=== PATIENT | female | born 1955 | race African-American/Black ===

== ENCOUNTER 2018-09-20 09:20 | Inpatient (IN) | payer MEDICAID ==
[~2018-09-20] VITALS: Ht 167.6 cm; Wt 61.2 kg
[2018-09-20] MEDS ORDERED: NAPR220C15 PO (09:41)
[2018-09-20] MEDS ORDERED: LOSA1TAB39 PO (09:41)
--- NOTE | 2018-09-20 09:43 | NUR ---
Dr Lira at the bedside for MSE.
[2018-09-20 10:19] LABS: BASOPHILS # (AUTO) 0.1 K/uL (0.0-8.0); BASOPHILS % (AUTO) 0.9 % (0.0-2.0); EOSINOPHILS # (AUTO) 0.1 K/uL (0.0-0.7); HEMATOCRIT 31.9 % (31.2-41.9); HEMOGLOBIN 10.8 g/dL (10.9-14.3); LYMPHOCYTES # (AUTO) 1.5 K/uL (20.0-40.0); LYMPHOCYTES % (AUTO) 22.6 % (20.5-51.5); MEAN CORPUSCULAR HEMOGLOBIN 29.2 uug (24.7-32.8); MEAN CORPUSCULAR HGB CONC 34 g/dL (32.3-35.6); MEAN CORPUSCULAR VOLUME 86.4 fL (75.5-95.3); MONOCYTES # (AUTO) 0.7 K/uL (2.0-10.0); MONOCYTES % (AUTO) 10.5 % (0.0-11.0); NEUTROPHILS # (AUTO) 4.2 K/uL (1.8-8.9); PLATELET COUNT (AUTO) 470 K/uL (179-408); WHITE BLOOD COUNT (AUTO) 6.5 K/uL (3.8-11.8)
--- NOTE | 2018-09-20 10:19 | NUR ---
Per Pt and MD request, faxed request to [facility] for Pt's medical records.
[2018-09-20 10:24] LABS: *BILIRUBIN,URIN NEGATIVE (NEGATIVE); *BLOOD, URINE NEGATIVE (NEGATIVE); *CLARITY,URINE CLEAR (CLEAR); *COLOR,URINE LIGHT YELLOW (YELLOW); *KETONES,URINE NEGATIVE (NEGATIVE); *PROTEIN,URINE NEGATIVE (NEGATIVE); *UROBILINOGEN,URINE 0.2 E.U./dl (NORMAL); LEUKOCYTE ESTERASE ,URINE NEGATIVE (NEGATIVE); NITRITE, URINE NEGATIVE (NEGATIVE); UGLUCOSE NEGATIVE (NEGATIVE)
[2018-09-20 10:27] LABS: CREATININE 1.2 mg/dL (0.6-1.3); POTASSIUM 3.3 mmol/L (3.5-5.1)
[2018-09-20 10:34] LABS: BACTERIA,URINE NONE SEEN /HPF (NONE SEEN); RBC,URINE 0-3 /HPF (0-3); SQUAMOUS EPITHELIAL CELL,UR MODERATE /HPF (NONE SEEN); WBC,URINE 0-3 /HPF (0-3)
[2018-09-20 10:39] LABS: BILIRUBIN,DIRECT 0.1 mg/dL (0.0-0.2); BILIRUBIN,TOTAL 0.6 mg/dL (0.2-1.0); TOTAL PROTEIN, SERUM 7.6 g/dL (6.4-8.2)
--- NOTE | 2018-09-20 11:55 | NUR ---
Pt is medically cleared by Dr Lira.
--- NOTE | 2018-09-20 12:06 | NUR ---
PET torch burner jarred was called per MD request.
--- NOTE | 2018-09-20 13:14 | NUR ---
Pinky from PET in w/ pt. for eval.
--- NOTE | 2018-09-20 14:37 | NUR ---
Called [facility], [place] for admit, awaiting Dr Abraham for call back.
--- NOTE | 2018-09-20 17:00 | NUR ---
Received patient from ER, history taken, patient oriented room and vitals recorded. No distress noted at this time, bed in low position, side rails up x2. Bed alarm on.
[2018-09-20 17:40] VITALS: BP 132/52
[2018-09-20] MEDS ORDERED: MAGNESIUM HYDROXIDE 30 ML LIQUID UDC PO PRN (17:45)
[2018-09-20] MEDS ORDERED: ACETAMINOPHEN 325 MG TABLET PO PRN (17:45)
[2018-09-20] MEDS ORDERED: LORAZEPAM 2 MG/1 ML VIAL IV PRN ×2 (17:45→18:30)
[2018-09-20] MEDS ORDERED: lamotrigine (17:53)
[2018-09-20] MEDS ORDERED: LEVE1000 PO (17:53)
[2018-09-20] MEDS ORDERED: OMEPR (17:53)
[2018-09-20] MEDS ORDERED: omeprazole (17:54)
[2018-09-20] MEDS ORDERED: hydrALAZINE HCL 25 MG TABLET PO PRN (18:30)
--- NOTE | 2018-09-20 19:35 | NUR ---
RECEIVED PT AWAKE, ALERT, AND ORIENTEDX4. VISITOR AT BEDSIDE. IV INTACT AND PATENT. PT SHOWS NO SIGNS OF DISTRESS. CALL LIGHT WITHIN REACH. SAFETY AND COMFORT PROVIDED. WILL CONTINUE TO MONITOR.
[2018-09-20 20:00] VITALS: BP 118/58
[2018-09-20] MEDS: DOCUSATE SODIUM 100 MG CAPSULE PO SCH (20:55)
[2018-09-20] MEDS: LEVETIRACETAM 500 MG TABLET PO SCH (20:55)
[2018-09-20] MEDS: POTASSIUM CHLORIDE 20 MEQ in IV 1/2NS 1000 ML 1,000 ML IV PRN (23:52)
[2018-09-21] VITALS: BP 108/47
[2018-09-21 04:00] VITALS: BP 116/70
[2018-09-21] MEDS: PANTOPRAZOLE SODIUM 40 MG TABLET.DR PO SCH (06:35)
--- NOTE | 2018-09-21 06:58 | NUR ---
PT SLEPT THROUGHOUT THE SHIFT.PT SHOWS NO SIGNS OF DISTRESS. PRESCRIBED MEDICATION GIVEN AND PT TOLERATED IT WELL. SAFETY AND COMFORT PROVIDED. WILL ENDORSE ACCORDINGLY TO DAYSHIFT NURSE FOR CONTINUITY OF CARE.
[2018-09-21 07:15] LABS: BASOPHILS % (AUTO) 0.8 % (0.0-2.0); EOSINOPHILS # (AUTO) 0.1 K/uL (0.0-0.7); EOSINOPHILS % (AUTO) 1.4 % (0.0-7.0); HEMATOCRIT 31.4 % (31.2-41.9); HEMOGLOBIN 10.6 g/dL (10.9-14.3); LYMPHOCYTES # (AUTO) 1.7 K/uL (20.0-40.0); LYMPHOCYTES % (AUTO) 27.5 % (20.5-51.5); MEAN CORPUSCULAR HEMOGLOBIN 29.5 uug (24.7-32.8); MEAN CORPUSCULAR HGB CONC 34 g/dL (32.3-35.6); MEAN CORPUSCULAR VOLUME 87.3 fL (75.5-95.3); MONOCYTES # (AUTO) 0.6 K/uL (2.0-10.0); NEUTROPHILS # (AUTO) 3.8 K/uL (1.8-8.9); NEUTROPHILS % (AUTO) 60.3 % (38.5-71.5); PLATELET COUNT (AUTO) 433 K/uL (179-408); WHITE BLOOD COUNT (AUTO) 6.2 K/uL (3.8-11.8)
--- NOTE | 2018-09-21 07:30 | NUR ---
RECEIVED REPORT FROM OXYACETYLENE WELDER NURSE, PATIENT IN BED AWAKE, NO DISTRESS NOTED AT THIS TIME, BED IS IN LOW POSITION, SIDE RAILS UP X2, BED ALARM SET.
[2018-09-21 08:58] LABS: BILIRUBIN,TOTAL 0.6 mg/dL (0.2-1.0); CREATININE 1.1 mg/dL (0.6-1.3); MAGNESIUM 2.1 mg/dL (1.8-2.4); PHOSPHOROUS 3.1 mg/dL (2.5-4.9); POTASSIUM 3.7 mmol/L (3.5-5.1); TOTAL PROTEIN, SERUM 6.8 g/dL (6.4-8.2)
[2018-09-21] MEDS ORDERED: Medication Not On Formulary EA (Losartan/Hydrochlorothiazide (Losartan-Hctz 100-25 Mg Ta PO SCH (09:00)
[2018-09-21] MEDS: LEVETIRACETAM 500 MG TABLET PO SCH ×2 (09:08→20:43)
[2018-09-21] MEDS: HYDROCHLOROTHIAZIDE 25 MG TABLET PO SCH (09:09)
[2018-09-21] MEDS: LOSARTAN POTASSIUM 50 MG TABLET PO SCH (09:10)
[2018-09-21] MEDS: TRAMADOL HCL 50 MG TABLET PO PRN ×2 (09:13→15:47)
[2018-09-21 11:27] VITALS: BP 118/63
[2018-09-21 15:23] VITALS: BP 125/85
[2018-09-21] MEDS: POTASSIUM CHLORIDE 20 MEQ in IV 1/2NS 1000 ML 1,000 ML IV PRN (16:34)
--- NOTE | 2018-09-21 19:25 | NUR ---
RECEIVED PT AWAKE,ALERT, ORIENTEDX4. PT SHOWS NO SIGNS OF DISTRESS. CALL LIGHT WITHIN REACH. BED ALARM ON, SAFETY AND COMFORT PROVIDED. WILL CONTINUE TO MONITOR.
[2018-09-21 20:15] VITALS: BP 132/46
[2018-09-21] MEDS: DOCUSATE SODIUM 100 MG CAPSULE PO SCH (20:43)
[2018-09-22 00:08] VITALS: BP 118/64
[2018-09-22] MEDS: ZOLPIDEM 5 MG TABLET PO PRN ×2 (00:10→20:46)
[2018-09-22 04:00] VITALS: BP 115/68
[2018-09-22] MEDS: PANTOPRAZOLE SODIUM 40 MG TABLET.DR PO SCH (06:00)
--- NOTE | 2018-09-22 06:14 | NUR ---
PT SLEPT THROUGHOUT THE SHIFT. PT SHOWS NO SIGNS OF DISTRESS. PRESCRIBED MEDICATION GIVEN AND PT TOLERATED IT WELL. IV INTACT AND PATENT. SAFETY AND COMFORT PROVIDED. WILL ENDORSE TO DAYSHIFT NURSE FOR CONTINUITY OF CARE.
[2018-09-22 06:47] LABS: BASOPHILS # (AUTO) 0.1 K/uL (0.0-8.0); EOSINOPHILS # (AUTO) 0.1 K/uL (0.0-0.7); EOSINOPHILS % (AUTO) 2.1 % (0.0-7.0); HEMATOCRIT 32.1 % (31.2-41.9); HEMOGLOBIN 10.9 g/dL (10.9-14.3); LYMPHOCYTES % (AUTO) 31.8 % (20.5-51.5); MEAN CORPUSCULAR HEMOGLOBIN 29.4 uug (24.7-32.8); MEAN CORPUSCULAR HGB CONC 34 g/dL (32.3-35.6); MEAN CORPUSCULAR VOLUME 86.9 fL (75.5-95.3); MONOCYTES # (AUTO) 0.5 K/uL (2.0-10.0); MONOCYTES % (AUTO) 7.2 % (0.0-11.0); NEUTROPHILS # (AUTO) 3.7 K/uL (1.8-8.9); NEUTROPHILS % (AUTO) 57.9 % (38.5-71.5); PLATELET COUNT (AUTO) 428 K/uL (179-408); WHITE BLOOD COUNT (AUTO) 6.3 K/uL (3.8-11.8)
[2018-09-22 06:56] LABS: POTASSIUM 3.9 mmol/L (3.5-5.1)
[2018-09-22] MEDS: LOSARTAN POTASSIUM 50 MG TABLET PO SCH (09:04)
[2018-09-22] MEDS: LEVETIRACETAM 500 MG TABLET PO SCH ×2 (09:04→20:46)
[2018-09-22] MEDS: HYDROCHLOROTHIAZIDE 25 MG TABLET PO SCH (09:04)
[2018-09-22] MEDS: POTASSIUM CHLORIDE 20 MEQ in IV 1/2NS 1000 ML 1,000 ML IV PRN ×2 (09:05→20:45)
[2018-09-22 11:09] VITALS: BP 133/58
[2018-09-22 15:21] VITALS: BP 138/64
[2018-09-22] MEDS: TRAMADOL HCL 50 MG TABLET PO PRN (16:49)
--- NOTE | 2018-09-22 18:38 | NUR ---
PT OBSERVED IN BED, DENIES PAIN AT THIS TIME, VITALS STABLE, SIDE RAILS PADDED. PENDING ORTHO CONSULT.CONTINUE TO MONITOR PT.
--- NOTE | 2018-09-22 19:30 | NUR ---
RECEIVED PT IN BED, AWAKE, IN NO ACUTE SIGNS OF DISTRESS. SAFETY MEASURES OBSERVED.
[2018-09-22 20:19] VITALS: BP 115/49
[2018-09-22] MEDS: DOCUSATE SODIUM 100 MG CAPSULE PO SCH (20:46)
[2018-09-23 00:23] VITALS: BP 119/52
[2018-09-23] MEDS: TRAMADOL HCL 50 MG TABLET PO PRN ×2 (03:35→15:11)
[2018-09-23 04:44] VITALS: BP 113/43
[2018-09-23] MEDS ORDERED: diphenhydrAMINE 25 MG CAP PO PRN (04:45)
--- NOTE | 2018-09-23 05:15 | NUR ---
C/O GENERALIZED ITCHING, NO SKIN RASHES OBSERVED, CARINA DAVIS NP MADE AWARE, WITH ORDER TO GIVE BENADRYL PO.
[2018-09-23] MEDS: PANTOPRAZOLE SODIUM 40 MG TABLET.DR PO SCH (06:03)
[2018-09-23 07:36] LABS: BASOPHILS % (AUTO) 0.3 % (0.0-2.0); EOSINOPHILS # (AUTO) 0.2 K/uL (0.0-0.7); EOSINOPHILS % (AUTO) 2.2 % (0.0-7.0); HEMATOCRIT 34.1 % (31.2-41.9); HEMOGLOBIN 11.4 g/dL (10.9-14.3); LYMPHOCYTES # (AUTO) 2.8 K/uL (20.0-40.0); LYMPHOCYTES % (AUTO) 37.9 % (20.5-51.5); MEAN CORPUSCULAR HEMOGLOBIN 29.3 uug (24.7-32.8); MEAN CORPUSCULAR HGB CONC 34 g/dL (32.3-35.6); MEAN CORPUSCULAR VOLUME 87.5 fL (75.5-95.3); MONOCYTES # (AUTO) 0.3 K/uL (2.0-10.0); MONOCYTES % (AUTO) 4.2 % (0.0-11.0); NEUTROPHILS # (AUTO) 4.1 K/uL (1.8-8.9); NEUTROPHILS % (AUTO) 55.4 % (38.5-71.5); PLATELET COUNT (AUTO) 468 K/uL (179-408); RED BLOOD CELL COUNT(AUTO) 3.89 MIL/uL (3.63-4.92); WHITE BLOOD COUNT (AUTO) 7.3 K/uL (3.8-11.8)
[2018-09-23 07:45] LABS: CREATININE 1.1 mg/dL (0.6-1.3); POTASSIUM 3.9 mmol/L (3.5-5.1)
[2018-09-23] MEDS: LOSARTAN POTASSIUM 50 MG TABLET PO SCH (08:24)
[2018-09-23] MEDS: HYDROCHLOROTHIAZIDE 25 MG TABLET PO SCH (08:24)
[2018-09-23] MEDS: LEVETIRACETAM 500 MG TABLET PO SCH ×2 (08:24→20:11)
[2018-09-23 11:11] VITALS: BP 112/53
[2018-09-23] MEDS: POTASSIUM CHLORIDE 20 MEQ in IV 1/2NS 1000 ML 1,000 ML IV PRN (11:41)
[2018-09-23 15:26] VITALS: BP 140/60
[2018-09-23] MEDS: ONDANSETRON 4 MG/2 ML VIAL IV PRN (16:39)
--- NOTE | 2018-09-23 18:47 | NUR ---
PT IS RESTING IN BED CALM, COOPERATIVE, NO SIGNS OF DISTRESS. CONTINUE TO MONITOR PT.
[2018-09-23 19:18] VITALS: BP 120/48
--- NOTE | 2018-09-23 19:30 | NUR ---
Patient in stable condition at start of shift. No acute distress noted. Vital signs in range. Pertinent assessment completed. A/Ox3-4 able to make her needs known. Denies pain & SOB. All extremities intact & able to move independently. Skin is intact. Has left upper arm Fx which is currently on a sling. Denying pain. Noted with right forearm IV site 20G running with Kcl 20 meq with 1/2 NS at 75cc/hr. No infiltration noted at IV site. Patient on seizure precautions, has a pad x1, refusing pads on other bed railing. Bed in low position, locked, x2 side rails up. Call light within reach. Will continue to monitor through shift.
[2018-09-23] MEDS: DOCUSATE SODIUM 100 MG CAPSULE PO SCH (20:11)
[2018-09-23] MEDS: ZOLPIDEM 5 MG TABLET PO PRN (21:43)
[2018-09-24] MEDS: ONDANSETRON 4 MG/2 ML VIAL IV PRN ×2 (00:50→08:43)
[2018-09-24] MEDS: TRAMADOL HCL 50 MG TABLET PO PRN ×3 (00:50→15:10)
[2018-09-24] MEDS: POTASSIUM CHLORIDE 20 MEQ in IV 1/2NS 1000 ML 1,000 ML IV PRN (00:53)
[2018-09-24 03:25] VITALS: BP 117/52
--- NOTE | 2018-09-24 06:25 | NUR ---
Slept intermittently through the night. C/O left shoulder pain. Pain management provided per MD order. C/O nausea during the shift. Administered zofran per order. Relieved by medication. Vital signs within range. Compliant with care. All needs attended to. Safety & comfort measures provided. Call light within reach. Will endorse to day shift nurse.
[2018-09-24] MEDS: PANTOPRAZOLE SODIUM 40 MG TABLET.DR PO SCH (06:47)
--- NOTE | 2018-09-24 07:20 | NUR ---
RECEIVED PATIENT IN ROOM AWAKE, AAOX4, NO ACUTE DISTRESS NOTED. IV ACCESS ON RFA #20 INTACT AND PATENT RUNNING 1/2 NS + 20MEQ KCL @ 75 CC/HR, INFUSING WELL. SPLINT ON LEFT ARM IN PLACE, NORMAL NEUROVASCULAR SIGNS. COMFORT MEASURES PROVIDED. CALL LIGHT WITHIN REACH. WILL CONTINUE TO MONITOR CLOSELY.
[2018-09-24] MEDS: HYDROCHLOROTHIAZIDE 25 MG TABLET PO SCH (09:00)
[2018-09-24] MEDS: LOSARTAN POTASSIUM 50 MG TABLET PO SCH (09:32)
[2018-09-24] MEDS: LEVETIRACETAM 500 MG TABLET PO SCH ×2 (09:35→20:01)
--- NOTE | 2018-09-24 09:40 | NUR ---
PATIENT REFUSED HYDROCHLOROTHIAZIDE. " STATES MAKES HER FEEL DIZZY AND GO TO THE BATHROOM ALOT" BP 130/60 HR 77. WILL CONTINUE TO MONITOR CLOSELY.
[2018-09-24 11:18] VITALS: BP 122/62
--- NOTE | 2018-09-24 13:00 | NUR ---
PATIENT SEEN AND EXAMINED BY DR. SOTO (ORTHO) NNO. WILL CONTINUE TO MONITOR CLOSELY.
[2018-09-24 15:15] VITALS: BP 149/67
--- NOTE | 2018-09-24 18:37 | NUR ---
PATIENT HAS AN ORDER FOR DISCHARGE TODAY 09/24/2018. DISCHARGE EDUCATION, INFORMATION, AND MEDICATIONS HAVE BEEN GIVEN AND DISCUSSED WITH PATIENT AT BEDSIDE. PATIENT STATES SHE DOES NOT HAVE A TRANSPORTATION RIGHT NOW (18:45), BUT WILL HAVE A MODE OF TRANSPORTATION BY [employer]. NURSE DETENTION SERGEANT HAS DISCUSSED DISCHARGE WITH THE PATIENT. PATIENT WAS GIVEN DISCHARGE PACKET ALONG WITH PRESCRIBED MEDICATION. PATIENT IS TO FOLLOW UP WITH HEALTH CARE PROVIDER WITHIN A WEEK AND ORTHO WITHIN 2 WEEKS. PATIENT WAS GIVEN CONTACT DETAILS TO MULTIDISCIPLINARY TEAM TO SCHEDULE A FOLLOW UP. PATIENT WILL SCHEDULE HER FOLLOW UP BASED ON HER CONVENIENCE AND AVAILABILITY.
--- NOTE | 2018-09-24 19:30 | NUR ---
Patient in stable condition at start of shift. No acute distress. Lying in bed comfortably, alert, awake & able to make her needs known. Per day shift nurse, patient to be discharged at 1999. D/C work completed. Patient leaving home & being picked up by a friend. Vital signs within range at start of shift. Call light within reach. Will monitor until D/C.
[2018-09-24] MEDS: DOCUSATE SODIUM 100 MG CAPSULE PO SCH (20:01)
[2018-09-24 20:26] VITALS: BP 133/64
--- NOTE | 2018-09-24 21:20 | NUR ---
PATIENT DISCHARGED IN STABLE CONDITION. LEAVING HOME WITH FRIEND. PATIENT TAKEN DOWN TO CAR VIA WHEELCHAIR. VITAL SIGNS WITHIN RANGE UPON D/C. ALL BELONGINGS WITH PATIENT.
== END 2018-09-24 21:35 | disposition home or self-care (01) | DRG 52 ==
LOC: ER 09:20 → MED 16:20 → TELE 18:18 → MED 09-23 18:31
PROVIDERS: ADMIT Internal Medicine; ATTEND Nurse Practitioner Acute Care
PROC: 0PSGXZZ Reposition Left Humeral Shaft, External Approach (ICD-10-PCS; principal; 2018-09-24)
DX: G92 Toxic encephalopathy (principal); E87.1 Hypo-osmolality and hyponatremia; T39.95XA Adverse effect of unspecified nonopioid analgesic, antipyretic and antirheumatic, initial encounter; G40.409 Other generalized epilepsy and epileptic syndromes, not intractable, without status epilepticus; Y92.048 Other place in boarding-house as the place of occurrence of the external cause; S42.342G Displaced spiral fracture of shaft of humerus, left arm, subsequent encounter for fracture with delayed healing; F43.20 Adjustment disorder, unspecified; W19.XXXD Unspecified fall, subsequent encounter; Y93.01 Activity, walking, marching and hiking; E87.6 Hypokalemia; D64.9 Anemia, unspecified; M19.90 Unspecified osteoarthritis, unspecified site; R27.0 Ataxia, unspecified; R74.0 Nonspecific elevation of levels of transaminase and lactic acid dehydrogenase [LDH]; F41.9 Anxiety disorder, unspecified; Y92.019 Unspecified place in single-family (private) house as the place of occurrence of the external cause
CPT/HCPCS: 36415; 70030-TC; 70450; 71045; 73030; 83550; 83605; 83735; 84100; 84443; 85025; 85730; 87040; 87086; 93005; 97165; A4663; G0378; J2060; J2405; J3480; J3490; Q0163